=== PATIENT | female | born 1960 | race Caucasian/White ===

== ENCOUNTER 2017-09-22 08:26 | Emergency (ER) | payer BC ==
[~2017-09-22] VITALS: Ht 175.3 cm; Wt 100.7 kg
[~2017-09-22 08:26] MED LIST: ACETAMINOPHEN-1 EAC1 PO; ALPRAZOLAM1 M1 PO; AMOXICILLIN/POTASSIU; AVELOX400 MG PO; CARISOPRODOL 3350 M1 PO; CELEBREX 200 M200 M1 PO; CYMBALTA30 MG PO; DICLOFENAC SODI75 MG PO; FUROSEMIDE 40 M40 M1 PO; LEVAQUIN 750 M750 MG PO; LEVOTHYROXIN0.088 MG PO; LEVOTHYROXIN0.175 MG PO; LEXAPRO 10 MG T10 M1 PO; METFORMIN HCL500 MG PO; NABUMETONE 750750 M1 PO; OMEPRAZOLE20 MG PO; OMNARIS; PHENTERMINE H37.5 M1 PO; PREDNISONE 10 M10 M1 PO; PREDNISONE 10 M10 MG PO; PREDNISONE 20 M20 M1 PO; PREDNISONE 20 M20 MG PO; PROAIR HFA8.5 GM IH; PROMETHAZINE/C118 ML PO; PROVENTIL HFA6.7 G1 INH; ROBAFEN AC SYR120 ML PO; TESSALON200 MG PO; TOPROL XL25 MG PO; VENTOLIN HFA 1818 GM INH; VICODIN; VITAMIN B-12500 MCG PO; ZPAK PO
[2017-09-22 09:03] LABS: ABSOLUTE BASOPHILS 0.1 thou/uL (0.0-0.2); ABSOLUTE EOSINOPHILS 0.2 thou/uL (0.0-0.7); ABSOLUTE LYMPHOCYTES 2.5 thou/uL (0.8-5.3); ABSOLUTE MONOCYTES 0.8 thou/uL (0.0-1.2); ABSOLUTE NEUTROPHILS 4.3 thou/uL (1.6-8.1); BASOPHILS 1.2 %; EOSINOPHILS 2.4 %; HEMOGLOBIN 14.6 gm/dL (12.0-15.0); LYMPHOCYTES 31.7 %; MCH 30.9 pg (26.0-34.0); MCHC 33.3 g/dL (28.0-37.0); MCV 92.9 fL (80.0-100.0); MPV 8.7 fl. (7.2-11.1); NUCLEATED RBCS 0 /100WBC; PLATELET COUNT* 295 thou/uL (150-400); POLYS 54.7 %; RBC 4.73 mil/uL (4.20-5.00); RDW-CV 14.2 % (10.5-14.5); WBC 7.9 thou/uL (4.0-11.0)
[2017-09-22 09:23] LABS: POTASSIUM 3.8 mmol/L (3.5-5.1)
[2017-09-22 09:28] LABS: ALBUMIN 3.4 g/dL (3.4-5.0); TOTAL BILIRUBIN 0.4 mg/dL (<0.1-1.0); TOTAL PROTEIN 6.7 g/dL (6.4-8.2)
[2017-09-22 09:40] VITALS: BP 129/77
== END 2017-09-22 09:40 | disposition home or self-care (01) ==
LOC: M.ERS 08:26
PROVIDERS: Family Medicine
DX: G43.909 Migraine, unspecified, not intractable, without status migrainosus (principal); Z90.710 Acquired absence of both cervix and uterus; Z87.891 Personal history of nicotine dependence